=== PATIENT | male | born 1985 | race American Indian/Alaskan Native ===

== ENCOUNTER 2018-08-21 01:08 | Emergency (ER) | payer OTHER ==
--- NOTE | 2018-08-21 01:30 | Emergency Department Report ---
ED General Adult HPI - General Chief complaint: Overdose Stated complaint: POSS OD Time Seen by Provider: 08/21/18 01:22 Source: EMS Mode of arrival: Stretcher Limitations: Altered Mental Status - History of Present Illness Initial comments: 32 y.o. male with a history of schizophrenia presents after being found down by family members yesenia at 0030. Patient per mom states that he was seen by a psychiatrist on 08/02 for hearing voices and prescribed Seroquel and Buspar. Patient was prescribed 25 mg of Seroquel and initially received 60 tablets on August 02. Patient also was prescribed 180 tablets of 5 mg of Buspar on 08/06. Patient currently has 6 tablets of Quetiapine left and 19 tablets of Buspar left. Family states that patient was compliant with his medications and took medications as prescribed while he was staying with them. Patient was staying with them until yesterday. Patient went back to his residence yesterday. Family states that they talked to him at 9 PM and he stated that he was eating sushi. Family went to check on patient at midnight and he was in an unresponsive state and EMS was called. Family dates that patient uses marijuana but denies any other illicit drug use. Severity scale (0 -10): 0 - Related Data Home Medications Medication Instructions Recorded Confirmed Last Taken QUEtiapine [SEROquel] 25 mg PO BID 08/21/18 08/21/18 Unknown QUEtiapine [SEROquel] 100 mg PO HS 08/21/18 08/21/18 Unknown busPIRone [Buspar] 10 mg PO TID PRN 08/21/18 08/21/18 Unknown Allergies Allergy/AdvReac Type Severity Reaction Status Date / Time No Known Allergies Allergy Unverified 08/21/18 01:18 ED Review of Systems ROS: Stated complaint: POSS OD Other details as noted in HPI Comment: Unobtainable due to pts medical conditions (patient is only arousable to sternal rub at current time) ED Past Medical Hx - Past Medical History Hx Psychiatric Treatment: Yes (recently diagnosis with schizo) - Surgical History Past Surgical History?: No - Social History Smoking Status: Current Every Day Smoker Substance Use Type: Marijuana - Medications Home Medications: Home Medications Medication Instructions Recorded Confirmed Last Taken Type QUEtiapine [SEROquel] 25 mg PO BID 08/21/18 08/21/18 Unknown History QUEtiapine [SEROquel] 100 mg PO HS 08/21/18 08/21/18 Unknown History busPIRone [Buspar] 10 mg PO TID PRN 08/21/18 08/21/18 Unknown History ED Physical Exam - General Limitations: Altered Mental Status General appearance: other (patient is responsive solely to sternal rub) - Head Head exam: Present: atraumatic, normocephalic - Eye Eye exam: Present: normal appearance Pupils: Present: miosis - ENT ENT exam: Present: mucous membranes dry - Neck Neck exam: Present: normal inspection - Respiratory Respiratory exam: Present: other (course breath sounds bilaterally). Absent: respiratory distress - Cardiovascular Cardiovascular Exam: Present: regular rate, normal rhythm. Absent: systolic murmur, diastolic murmur, rubs, gallop - GI/Abdominal GI/Abdominal exam: Present: soft, normal bowel sounds. Absent: tenderness - Rectal Rectal exam: Present: deferred - Extremities Exam Extremities exam: Present: normal inspection - Back Exam Back exam: Present: normal inspection - Neurological Exam Neurological exam: Present: other (patient is only responsive to sternal rub but wakens with this activity and moves all extremities and yells out.) - Psychiatric Psychiatric exam: Present: suicidal ideation - Skin Skin exam: Present: warm, dry, intact, normal color. Absent: rash ED Course Vital Signs 08/21/18 08/21/18 08/21/18 01:09 01:12 01:16 Pulse Rate 85 72 82 Respiratory 23 23 20 Rate Blood Pressure 97/45 Blood Pressure 97/45 [Right] O2 Sat by Pulse 96 93 95 Oximetry 08/21/18 08/21/18 08/21/18 01:31 01:45 02:01 Pulse Rate 76 71 68 Respiratory 21 18 15 Rate Blood Pressure 97/45 112/46 100/51 Blood Pressure [Right] O2 Sat by Pulse 98 94 94 Oximetry 08/21/18 08/21/18 08/21/18 02:15 02:31 02:45 Pulse Rate 71 83 72 Respiratory 21 21 Rate Blood Pressure 100/51 100/51 117/54 Blood Pressure [Right] O2 Sat by Pulse 90 89 99 Oximetry 08/21/18 08/21/18 08/21/18 03:00 03:16 03:30 Pulse Rate 78 90 78 Respiratory Rate Blood Pressure 109/57 111/61 113/63 Blood Pressure [Right] O2 Sat by Pulse 94 100 100 Oximetry 08/21/18 08/21/18 08/21/18 03:46 04:00 04:15 Pulse Rate 75 77 82 Respiratory Rate Blood Pressure 104/65 115/64 153/90 Blood Pressure [Right] O2 Sat by Pulse 93 96 95 Oximetry 08/21/18 04:30 Pulse Rate 78 Respiratory Rate Blood Pressure 144/75 Blood Pressure [Right] O2 Sat by Pulse 98 Oximetry ED Medical Decision Making - Lab Data Result diagrams: 08/21/18 02:10 08/21/18 01:40 - EKG Data EKG shows normal: sinus rhythm Rate: normal - EKG Data When compared to previous EKG there are: no significant change Interpretation: other (QTC prolongation noted) - Medical Decision Making Patient case discussed with poison control and patient was monitored for a period of 4 hours status post ingestion. Patient is currently medically clear. Patient currently states that he was suicidal when he made this attempt. Janice nt also admits to alcohol consumption with this as well. Patient to be transferred to an inpatient psychiatric Hospital for continued management and treatment. - Differential Diagnosis Polysubstance Abuse; Acute Renal Failure; Electrolyte Abnormality; ANemia Critical Care Time: Yes Critical care time in (mins) excluding proc time.: 45 Critical care attestation.: If time is entered above; I have spent that time in minutes in the direct care of this critically ill patient, excluding procedure time. Critical care time includes time spent with consultation with poison control, frequent reassessment, direct bedside care. ED Disposition Clinical Impression: Drug overdose, intentional, Suicidal ideation, Polysubstance abuse Disposition: [id number] PSY HOSP/PSY UNIT Is pt being admited?: No Condition: Stable Time of Disposition: 05:18 Print Language: NEPALI
[2018-08-21] MEDS ORDERED: NACL 0.9% 1000 ML 1,000 ML IV ONE (02:03)
[2018-08-21 02:16] LABS: Alanine Aminotransferase 21 units/L (7-56); Albumin 3.8 g/dL (3.9-5); BUN/Creatinine Ratio 9; Blood Urea Nitrogen 8 mg/dL (9-20); Calcium 8.5 mg/dL (8.4-10.2); Hemolysis Index 8
[2018-08-21 02:28] LABS: Basophils % (Auto) 0.5 % (0.0-1.8); Eosinophils # (Auto) 0.1 K/mm3 (0.0-0.4); Eosinophils % (Auto) 1.2 % (0.0-4.3); Hematocrit 39.9 % (35.5-45.6); Lymphocytes # (Auto) 1.6 K/mm3 (1.2-5.4); Lymphocytes % (Auto) 34.6 % (13.4-35.0); Mean Corpuscular HGB Conc 33 % (32-34); Mean Corpuscular Volume 80 fl (84-94); Monocytes # (Auto) 0.4 K/mm3 (0.0-0.8); Monocytes % (Auto) 9.6 % (0.0-7.3); Platelet Count 253 K/mm3 (140-440); Red Blood Count 5.01 M/mm3 (3.65-5.03); Red Cell Distribution Width 16.1 % (13.2-15.2)
--- NOTE | 2018-08-21 02:43 | XRay Report ---
PROCEDURE: XR CHEST 1V AP TECHNIQUE: Chest radiograph single view. HISTORY: chest pain COMPARISONS: None . FINDINGS: Heart: Normal. Mediastinum/Vessels: Normal. Lungs/Pleural space: Normal. Bony thorax: There is extensive the mid and lower thoracic spinal fixation hardware.. Life support devices: None. IMPRESSION: No acute cardiopulmonary abnormality. This document is electronically signed by Dafne Millard DO., August 21 2018 02:41:39 AM ET
[2018-08-21 02:56] LABS: Amphetamine Screen,Urine PRESUMPTIVE NEGATIVE; Benzodiazepines Screen,Urine PRESUMPTIVE NEGATIVE; Cocaine Screen,Urine PRESUMPTIVE NEGATIVE; Methadone Screen,Urine PRESUMPTIVE NEGATIVE; Opiate Screen,Urine PRESUMPTIVE NEGATIVE
[2018-08-21 03:12] LABS: Cannabinoid Screen,Urine PRESUMPTIVE POSITIVE
--- NOTE | 2018-08-21 10:56 | Consultation ---
History of Present Illness - Reason for Consult Consult date: 08/21/18 Reason for consult: Mental Health Evaluation Requesting physician: OMID NIEVES - Chief Complaint Chief complaint: "The patient is lethargic" - History of Present Psychiatric Illness 33 y.o. AA male who presented to the ER for being unresponsive from a possible overdose. Today the patient is lethargic during the assessment that could not be completed. Medications and Allergies Allergies Allergy/AdvReac Type Severity Reaction Status Date / Time No Known Allergies Allergy Unverified 08/21/18 01:18 Home Medications Medication Instructions Recorded Confirmed Last Taken Type QUEtiapine [SEROquel] 25 mg PO BID 08/21/18 08/21/18 Unknown History QUEtiapine [SEROquel] 100 mg PO HS 08/21/18 08/21/18 Unknown History busPIRone [Buspar] 10 mg PO TID PRN 08/21/18 08/21/18 Unknown History Past psychiatric history - Past Medical History Past Medical History: other (Unable to obtain) Past Surgical History: Other (Unable to obtain ) - past Psychiatric treatment and history psychiatric treatment history: Unable to obtain a psy hx and a fam psy hx. - Social History Social history: lives with family Mental Status Exam - Vital signs Last Vital Signs Temp Pulse 91 H 08/21/18 07:26 Resp 16 08/21/18 07:26 BP 125/46 08/21/18 07:26 Pulse Ox 96 08/21/18 07:26 - Exam Narrative exam: Unable to complete the MSE because of the patient's condition. Results Result Diagrams: 08/21/18 02:10 08/21/18 01:40 Abnormal lab results 08/21/18 08/21/18 08/21/18 Range/Units 01:40 02:10 02:10 MCV 80 L (84-94) fl MCH 26 L (28-32) pg RDW 16.1 H (13.2-15.2) % [place] % (Auto) 9.6 H (0.0-7.3) % Potassium 3.3 L (3.6-5.0) mmol/L BUN 8 L (9-20) mg/dL Total Creatine Kinase 333 H (55-170) units/L Albumin 3.8 L (3.9-5) g/dL Salicylates (2.8-20.0) mg/dL Acetaminophen (10.0-30.0) ug/mL Plasma/Serum Alcohol (0-0.07) % 08/21/18 08/21/18 08/21/18 Range/Units 02:10 02:10 02:10 MCV (84-94) fl MCH (28-32) pg RDW (13.2-15.2) % [place] % (Auto) (0.0-7.3) % Potassium (3.6-5.0) mmol/L BUN (9-20) mg/dL Total Creatine Kinase (55-170) units/L Albumin (3.9-5) g/dL Salicylates < 0.3 L (2.8-20.0) mg/dL Acetaminophen < 5.0 L (10.0-30.0) ug/mL Plasma/Serum Alcohol 0.14 H (0-0.07) % All other labs normal. Assessment and Plan Assessment and plan: Impression: Per the chart, the patient may have overdosed intentionally. Recommendation/Plan: Continue 1013, gather collateral information, and reassess the patient in 24 hours[address] Will staff with Dr Ricci Ontiveros.
[2018-08-21 14:04] VITALS: BP 153/104
[2018-08-21 16:52] LABS: Bilirubin,Urine NEG (Negative); Blood,Urine NEG (Negative); Color,Urine Yellow (Yellow); Mucus,Urine FEW /HPF; Protein,Urine <15 mg/dL mg/dL (Negative); Urobilinogen,Urine < 2.0 mg/dL (<2.0)
== END 2018-08-21 19:23 ==
LOC: ED 01:08
DX: T43.592A Poisoning by other antipsychotics and neuroleptics, intentional self-harm, initial encounter (principal); R41.82 Altered mental status, unspecified; F19.10 Other psychoactive substance abuse, uncomplicated; F17.200 Nicotine dependence, unspecified, uncomplicated; F12.10 Cannabis abuse, uncomplicated; Y92.89 Other specified places as the place of occurrence of the external cause
CPT/HCPCS: 36415; 71045; 80053; 80307; 81001; 82550; 82962; 83735; 84484; 85025; 93005; 93010; 96360; 96361; 99291; G0480; J7030; 80320